=== PATIENT | female | born 1945 | race Caucasian/White ===

== ENCOUNTER 2022-12-24 13:43 | Outpatient (RCR) | payer MEDICARE, OTHER, SELFPAY | END 2023-01-29 16:02 | disposition home or self-care (01) | LOC: HO.WCC 13:43 | PROVIDERS: PCP Nurse Practitioner Family; Referring Provider Radiology Vascular & Interventional Radiology; Visit Provider Surgery | DX: E11.622 Type 2 diabetes mellitus with other skin ulcer (principal); E11.52 Type 2 diabetes mellitus with diabetic peripheral angiopathy with gangrene; I87.311 Chronic venous hypertension (idiopathic) with ulcer of right lower extremity; L97.519 Non-pressure chronic ulcer of other part of right foot with unspecified severity; S91.302D Unspecified open wound, left foot, subsequent encounter; S91.105D Unspecified open wound of left lesser toe(s) without damage to nail, subsequent encounter; I96 Gangrene, not elsewhere classified; I48.91 Unspecified atrial fibrillation; I10 Essential (primary) hypertension; F17.210 Nicotine dependence, cigarettes, uncomplicated; Z79.4 Long term (current) use of insulin; Z79.01 Long term (current) use of anticoagulants; Z79.84 Long term (current) use of oral hypoglycemic drugs; Z79.899 Other long term (current) drug therapy; Z79.2 Long term (current) use of antibiotics | CPT/HCPCS: 29580; 99213 ==